=== PATIENT | female | born 2000 | race Caucasian/White ===

== ENCOUNTER → 2023-07-24 06:25 | Day surgery (SDC) | payer OTHER, SELFPAY | LOC: GI 06:25 | PROVIDERS: ATTENDING PHYSICIAN Internal Medicine Gastroenterology; FAMILY PHYSICIAN Family Medicine | DX: K29.70 Gastritis, unspecified, without bleeding (principal); R10.30 Lower abdominal pain, unspecified; R19.4 Change in bowel habit; R14.0 Abdominal distension (gaseous); R12 Heartburn | CPT/HCPCS: 45378; 43239; 88305; 88342 ==